=== PATIENT | male | born 1985 | race Caucasian/White ===

== ENCOUNTER 2025-03-14 11:10 | Emergency (ER) | payer OTHER ==
[2025-03-14] MEDS ORDERED: BACIGUENT PACKET ONE (11:34)
[2025-03-14] MEDS ORDERED: XYLOCAINE 1% HCL 20 ML MDV ONE (11:34)
--- NOTE | 2025-03-14 11:37 | ERPHSYRPT ---
- History of Present Illness Time Seen by Provider: 03/14/25 11:36 Source: patient, family Exam Limitations: no limitations Physician History: Pt had onset of lac left cheek of face when a mirror he was disposing bounced back and struck him there - this did not break and he is not aware of any debris. No LOC, Co blood thinners or bleeding dyscrasias. Normal neuro pexam PERRL EOM ful fundi benign, Skull and spine all nontender. Full ROM all ext without pain. Normal mental status. 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 no facial asymmetry. Discussed with pt and available family risks and benefits of suturing and any testing such as imaging, / he agrees that imaging does not seem indicated and declines pain med, but will take sutures and bactroban topical Antibiotic , and head injury precautions and he and they wish to proceed so these are ordered. Results discussed with pt and available family Pt and family were advised of the limitations of the testing and Tx performed today in this setting and that additional traumatic pathology could still be evolving even with lack of signs/symptoms, and that FB could still occur even with this irrigation performed and when none palpable in wound. He/ They voice their understanding and wish to choose f/u fopr suture replacement with steristrip in 5 days but hold off on further testing in ER such as imaging at this time, and they have the capacity to make this choice. Tet reported by p[t as UTD and less than 5-10 years. Timing/Duration: today Severity: mild Location: face Possible Causes: other (hit by mirror) Associated Symptoms: denies symptoms Allergies/Adverse Reactions: No Known Drug Allergies Allergy (Verified 03/14/25 11:22) - Review of Systems Constitutional: No Fever, No Chills Eyes: No Symptoms Ears, Nose, & Throat: Other (face lac left cheek) Respiratory: No Cough, No Dyspnea Cardiac: No Chest Pain, No Edema, No Syncope Abdominal/Gastrointestinal: No Abdominal Pain, No Nausea, No Vomiting, No Diarrhea Genitourinary Symptoms: No Dysuria Musculoskeletal: Injury, Other (face lac), No Back Pain, No Neck Pain, No Fall Skin: No Rash Neurological: No Dizziness, No Focal Weakness, No Headache, No Sensory Changes Psychological: No Symptoms Endocrine: No Symptoms Hematologic/Lymphatic: No Symptoms Immunological/Allergic: No Symptoms All Other Systems: Reviewed and Negative - Past Medical History Pertinent Past Medical History: No - Past Surgical History Past Surgical History: No - Nursing Vital Signs Nursing Vital Signs: Initial Vital Signs Temperature 98 F 03/14/25 11:10 Pulse Rate 74 03/14/25 11:10 Respiratory Rate 20 03/14/25 11:10 Blood Pressure 137/90 03/14/25 11:10 O2 Sat by Pulse Oximetry 97 03/14/25 11:10 Pain Scale Pain Intensity 0 - Physical Exam General Appearance: no apparent distress, alert Eye Exam: PERRL/EOMI, eyes nml inspection Ears, Nose, Throat Exam: normal ENT inspection, pharynx normal, moist mucous membranes Neck Exam: normal inspection, non-tender, supple, full range of motion, No midline tenderness Respiratory Exam: normal breath sounds, lungs clear, No chest tenderness, No respiratory distress Cardiovascular Exam: regular rate/rhythm, normal heart sounds, normal peripheral pulses Gastrointestinal/Abdomen Exam: soft, mass, No tenderness, No distention, No guarding Back Exam: normal inspection, normal range of motion, No CVA tenderness, No vertebral tenderness Extremity Exam: normal inspection, normal range of motion Neurologic Exam: alert, oriented x 3, cooperative, normal mood/affect, sensation nml, No motor deficits Skin Exam: normal color, warm, dry SpO2 Interpretation: normal SpO2: 97 O2 Delivery: Room Air Procedures - Laceration/Wound Repair Left Face Time of Procedure: 12:24 Wound Location: Left, face Wound Length (cm): 1.5 Wound's Depth, Shape: into subcut Wound Explored: no foreign body noted Irrigated: Yes (saline and hibiclens) Hibiclens Prep: Yes Anesthesia: local, 1% Lidocaine Volume Anesthetic (ccs): 3 Wound Debrided: minimal Wound Repaired With: sutures Suture Size/Type: 4-0, nylon Number of Sutures: 3 (point of V approximated.) Layer Closure?: No Sterile Dressing Applied?: Yes Splint Applied?: No Sling Applied?: No - Course Nursing assessment & vital signs reviewed: Yes Ordered Tests: Medication Summary Discontinued Medications Generic Name Dose Route Start Last Admin Trade Name Freq PRN Reason Stop Dose Admin Bacitracin Zinc Confirm 03/14/25 11:34 Bacitracin Packet 1 Each Pckt Administered 03/14/25 11:35 Dose 1 each .ROUTE .STK-MED ONE Bacitracin Zinc 0.9 each 03/14/25 12:06 03/14/25 12:08 Bacitracin Packet 1 Each Pckt TP 03/14/25 12:07 0.9 each STAT ONE Administration Lidocaine HCl Confirm 03/14/25 11:34 Lidocaine Hcl 1% 20 Ml Mdv 20 Ml Ml Administered 03/14/25 11:35 Dose 1 ml .ROUTE .STK-MED ONE Lidocaine HCl 10 ml 03/14/25 12:05 03/14/25 12:07 Lidocaine Hcl 1% 20 Ml Mdv 20 Ml Ml IJ 03/14/25 12:06 10 ml STAT ONE Administration - Progress Progress: improved, re-examined Counseled pt/family regarding: diagnosis, need for follow-up Medical Desision Making - Independent Historian Additional History obtained from: Family - Discussion of managment Reviewed:: Need for additional workup Agreed on:: Treatment plan, need for follow-up - Diagnostic Testing Diagnostic test were ordered, analyzed, and reviewed by me: No - Risk of complications The pt has a mod risk of morbidity or mortality based on: Need for prescription drug management - Departure Departure Disposition: Home Clinical Impression: lac left face Condition: Good Critical Care Time: No Referrals: Ana Lilia Merritt [Primary Care Provider, UNKNOWN] - Follow up/PCP as directed Instructions: Laceration Repair With Stitches (DC), Minor head injury in adults - ED discharge instructions, Concussion in adults - ED discharge instructions Additional Instructions: see quick care or Dr as planned to replace sutures with steristrips in 5 days to minimize scar. Use Bactroban twice daily until healed. We are giving head injury precautions even though no sign for concussion at this time because it can be delayed and we want you to know what to look for and to return if any of these concerns. also return if any drainage, redness or other wound concerns. Prescriptions: Mupirocin [Bactroban OINTMENT] 22 gm TP BID #1 cartridge
[2025-03-14 12:02] VITALS: RESP 16
[2025-03-14] MEDS: XYLOCAINE 1% HCL 20 ML MDV IJ ONE (12:07)
[2025-03-14] MEDS: BACIGUENT PACKET TP ONE (12:08)
[2025-03-14 12:10] VITALS: BP 128/82; PULSE 72
[2025-03-14 12:11] VITALS: TEMP 97.8
[2025-03-14 12:26] VITALS: O2SAT 97
== END 2025-03-14 12:32 | disposition home or self-care (01) ==
LOC: ED 11:10
DX: S01.412A Laceration without foreign body of left cheek and temporomandibular area, initial encounter (principal); W20.8XXA Other cause of strike by thrown, projected or falling object, initial encounter; W25.XXXA Contact with sharp glass, initial encounter